=== PATIENT | male | born 2000 | race Asian ===

== ENCOUNTER 2021-05-19 13:04 | Outpatient (CLI) | payer OTHER | END 2021-05-19 21:07 | disposition home or self-care (01) | LOC: SLB 13:04 | DX: A15.9 Respiratory tuberculosis unspecified (principal) | CPT/HCPCS: 36415; 86480 ==

== ENCOUNTER 2021-05-28 15:35 | Outpatient (CLI) | payer OTHER | END 2021-05-28 20:22 | disposition home or self-care (01) | LOC: SLB 15:35 | DX: Z01.818 Encounter for other preprocedural examination (principal) | CPT/HCPCS: 71046-TC ==